=== PATIENT | male | born 2000 | race Caucasian/White ===

== ENCOUNTER 2021-12-16 01:57 | Observation (INO) ==
[2021-12-16] MEDS ORDERED: ONDANSETRON 4 MG OD TAB PO STA (02:00)
[2021-12-16] MEDS ORDERED: SODIUM CHLORIDE 0.9% 1000ML 1,000 ML IV STA (02:00)
[2021-12-16] MEDS ORDERED: ACETAMINOPHEN 1,000 MG/100 ML VIAL IV STA (02:11)
[2021-12-16] MEDS ORDERED: DICYCLOMINE HCL 10 MG/ML 2 ML AMP/VIAL IM ONE (02:11)
[2021-12-16] MEDS ORDERED: SODIUM CHLORIDE 0.9% 1000ML 1,000 ML IV ONE (02:22)
[2021-12-16 02:28] LABS: Basophils # (auto) 0.03 K/uL (0-0.2); Basophils % (auto) 0.2 %; Eosinophils # (auto) 0.02 K/uL (0-0.50); Eosinophils % (auto) 0.1 %; Hematocrit (blood only) 42.6 % (40.1-51.0); Hemoglobin 15.5 g/dl (14.0-18.0); Immature Granulocytes # (auto) 0.07 K/uL (0.00-0.02); Immature Granulocytes % (auto) 0.4 %; Lymphocytes # (auto) 3.88 K/uL (1.2-3.4); Lymphocytes % (auto) 22.8 %; Mean Corpuscular Hgb Conc 36.4 g/dL (32.0-36.0); Mean Platelet Volume 11.3 fL (9.4-12.4); Monocytes # (auto) 1.23 K/uL (0.24-0.82); Monocytes % (auto) 7.2 %; Neutrophils # (auto) 11.82 K/uL (1.4-6.5); Neutrophils % (auto) 69.3 %; Platelet Count 222 K/uL (130-400); RDW Coefficient of Variation 11.5 % (11.5-14.5); Red Blood Count 4.84 M/uL (4.63-6.08); White Blood Count 17.05 K/ul (4.8-10.8)
--- NOTE | 2021-12-16 02:28 | Emergency Department Note ---
History of Present Illness General Chief complaint: Abdominal Pain Stated complaint: ABD PAINS,NAUSEA,LIGHTHEADED Time Seen by Provider: 12/16/21 02:01 History of Present Illness Maximum Pain Intensity: 10 This 21-year-old [facility] presents to the ER complaining of nausea vomiting abdominal pain for the past day Location: Abdomen Quality: Nauseated Severity: moderate Duration: past day Timing: past day Context: Patient was concerned and came in Modifying factors: better with rest; worse with activity Patient states he is healthy with no active medical problems. He does drink moderately. Patient denies chest pain, dyspnea, fevers, diarrhea, testicular pain, penile pain. No anal pain. Home Medications Medication Instructions Recorded Confirmed Type No Known Home Medications 12/16/21 12/16/21 History Allergies Allergy/AdvReac Type Severity Reaction Status Date / Time No Known Allergies Allergy Unverified 12/16/21 02:27 Past Med/Surg History Medical History No acute medical problems Surgical History No pertinent past surgical history Social History Smoking Status: Never smoker Preferred Language: Mauritanian Feels Safe at Home: Yes Review of Systems A total of 10 systems reviewed and were otherwise negative Physical Exam Vital Signs Vital Signs - 24 hr 12/16/21 02:01 12/16/21 02:17 12/16/21 02:43 Temperature 36.8 C Temperature Source Temporal Artery Scan Pulse Rate 110 H 103 H Pulse Rate [Finger] 84 Pulse Rhythm [Finger] Regular Pulse Strength [Finger] Normal Respiratory Rate 18 20 18 Respiratory Effort / Characteristics Non-Labored Spontaneous Non-Labored Spontaneous Respiratory Depth Normal Normal Blood Pressure 151/90 H Blood Pressure [Right Arm] 131/70 Blood Pressure Mean 110 Blood Pressure Mean [Right Arm] 90 Blood Pressure Position Sitting Pulse Oximetry 99 96 98 Oxygen Delivery Method Room Air Room Air Room Air Sepsis Recent Fever Within 48 Hours No Sepsis New/Unexplained Change in Mental Status No Sepsis Action Taken by Nursing No Action Required 12/16/21 04:01 Temperature Temperature Source Pulse Rate Pulse Rate [Finger] 101 H Pulse Rhythm [Finger] Pulse Strength [Finger] Respiratory Rate 16 Respiratory Effort / Characteristics Respiratory Depth Blood Pressure Blood Pressure [Right Arm] 129/77 Blood Pressure Mean Blood Pressure Mean [Right Arm] 94 Blood Pressure Position Pulse Oximetry 94 Oxygen Delivery Method Room Air Sepsis Recent Fever Within 48 Hours Sepsis New/Unexplained Change in Mental Status Sepsis Action Taken by Nursing VITALS: Vitals are noted on the nurse's note and reviewed by myself. Vital signs reviewed. GENERAL: Pleasant gentleman holding his vomit bag, in no acute distress, nondiaphoretic, well-developed well-nourished. SKIN: The skin was without rashes, erythema, edema, or bruising. There is no tenting of the skin. Capillary reflex less than 2 seconds. HEAD: Normocephalic atraumatic. EARS: External auditory canals clear, EYES: Pupils equal round and reactive to light and accommodation. Conjunctivae without injection, sclerae without icterus. Extraocular movements intact. NOSE: Patent, turbinates without inflammation or discharge. MOUTH: Mucous membranes moist. Pharynx without erythema or exudate. Uvula midline. Airway patent. Tongue does not deviate. NECK: Supple without nuchal rigidity. No lymphadenopathy. No thyromegaly. Cervical spine is nontender. No JVD. HEART: Regular rate and rhythm LUNGS: Clear to auscultation bilaterally without wheezes, rales or rhonchi. No retractions or accessory muscle use. ABDOMEN: Positive bowel sounds x 4. Normal tympanic percussion. Soft, diffusely tender to palpation, without masses or organomegaly. Lemons sign negative. No guarding or rebound tenderness. No CVA tenderness MUSCULOSKELETAL: No muscle atrophy, erythema, or edema noted. NEURO: Patient was alert and oriented to person place and time. Normal sensation to light and sharp touch. No focal neurological deficits. Course Administered Medications Potassium Chloride (K Shahid / Wtr) 10 meq in 100 mls @ 100 mls/hr IV ONE ONE; Protocol Stop: 12/16/21 04:55 Last Admin: 12/16/21 04:20 Dose: 100 mls/hr Documented By: SUSY Discontinued Medications Dicyclomine HCl (Dicyclomine Hcl 10 Mg/Ml 2 Ml Amp/Vial) 20 mg IM NOW ONE Stop: 12/16/21 02:12 Last Admin: 12/16/21 02:19 Dose: 20 mg Documented By: SUSY Sodium Chloride (Nss 1000ml) 1,000 mls @ 999 mls/hr IV .Q1H1M STA Stop: 12/16/21 03:00 Last Infusion: 12/16/21 02:41 Dose: 0 mls/hr Documented By: Admin: 12/16/21 02:19 Dose: 999 mls/hr Documented By: SUSY Acetaminophen (Ofirmev) 1,000 mg in 100 mls @ 400 mls/hr IV NOW STA Stop: 12/16/21 02:25 Last Infusion: 12/16/21 02:38 Dose: 0 mls/hr Documented By: Admin: 12/16/21 02:19 Dose: 400 mls/hr Documented By: SUSY Sodium Chloride (Nss 1000ml) 1,000 mls @ 999 mls/hr IV .Q1H1M ONE Stop: 12/16/21 03:22 Last Infusion: 12/16/21 03:27 Dose: 0 mls/hr Documented By: Admin: 12/16/21 02:40 Dose: 999 mls/hr Documented By: SUSY Piperacillin Sod/Tazobactam Sod (Zosyn) 4.5 gm in 120 mls @ 240 mls/hr IV NOW ONE Stop: 12/16/21 04:03 Last Infusion: 12/16/21 04:17 Dose: 0 mls/hr Documented By: Admin: 12/16/21 03:48 Dose: 240 mls/hr Documented By: SUSY Ioversol (Optiray 350 100ml) 100 ml IV ONCE ONE Stop: 12/16/21 03:16 Last Admin: 12/16/21 03:15 Dose: 86 ml Documented By: MOHSEN Morphine Sulfate (Morphine Sulfate 4 Mg/Ml 1 Ml Carp\Vial) 4 mg IV NOW STA Stop: 12/16/21 03:44 Last Admin: 12/16/21 03:47 Dose: 4 mg Documented By: SUSY Ondansetron HCl (Ondansetron 4 Mg Od Tab) 4 mg PO NOW STA Stop: 12/16/21 02:01 Last Admin: 12/16/21 02:19 Dose: 4 mg Documented By: SUSY Ondansetron HCl (Ondansetron Inj 2 Mg/Ml 2 Ml Vial) 4 mg IV NOW STA Stop: 12/16/21 03:24 Last Admin: 12/16/21 03:26 Dose: 4 mg Documented By: SUSY Potassium Chloride (Potassium Chloride 10 Meq Tabcr) 40 meq PO NOW STA Stop: 12/16/21 03:14 Last Admin: 12/16/21 03:47 Dose: Not Given Documented By: SUSY Medical Decision Making Medical Records Attestation: I reviewed the patient's medical records. Home Medications Current Medication List: was personally reviewed by me Laboratory Data Attestation: I reviewed the patient's lab results. Result diagrams: 12/16/21 02:15 12/16/21 02:15 Lab Results 12/16/21 12/16/21 12/16/21 Range/Units 02:15 02:15 03:35 WBC 17.05 H (4.8-10.8) K/ul RBC 4.84 (4.63-6.08) M/uL Hgb 15.5 (14.0-18.0) g/dl Hct 42.6 (40.1-51.0) % MCV 88.0 (80.0-100.0) fL MCH 32.0 (25.0-34.0) pg MCHC 36.4 H (32.0-36.0) g/dL RDW Std Deviation 37.0 (36.4-46.3) fL RDW Coeff of Katarzyna 11.5 (11.5-14.5) % Plt Count 222 (130-400) K/uL MPV 11.3 (9.4-12.4) fL Immature Gran % (Auto) 0.4 % Neut % (Auto) 69.3 % Lymph % (Auto) 22.8 % Mason % (Auto) 7.2 % Eos % (Auto) 0.1 % Baso % (Auto) 0.2 % Neut # (Auto) 11.82 H (1.4-6.5) K/uL Lymph # (Auto) 3.88 H (1.2-3.4) K/uL Mason # (Auto) 1.23 H (0.24-0.82) K/uL Eos # (Auto) 0.02 (0-0.50) K/uL Baso # (Auto) 0.03 (0-0.2) K/uL Immature Gran # (Auto) 0.07 H (0.00-0.02) K/uL Sodium 135 L (136-145) mmol/L Potassium 3.2 L (3.5-5.1) mmol/L Chloride 99 (98-107) mmol/L Carbon Dioxide 24 (21-32) mmol/L Anion Gap 12 H (3-11) BUN 15 (6-23) mg/dl Creatinine 1.07 (0.6-1.4) mg/dl Est Cr Clr Drug Dosing 109.0 ml/min Est GFR ( Amer) 115.2 ml/min Est GFR (Non-Af Amer) 99.4 ml/min BUN/Creatinine Ratio 14.0 (10-20) Glucose 189 H (70-99(Fasting)) mg/dl Calcium 9.5 (8.5-10.1) mg/dl Total Bilirubin 1.2 H (0.2-1.0) mg/dl AST 13 (13-39) U/L ALT 11 (7-52) U/L Alkaline Phosphatase 55 (34-104) U/L Total Protein 7.4 (6.0-8.3) gm/dl Albumin 4.7 (3.4-5.0) gm/dl Globulin 2.7 (2.5-4.0) gm/dl Albumin/Globulin Ratio 1.7 (0.9-2) Lipase 10 L (11-82) U/L Urine Color Yellow Urine Appearance Clear (Clear) Urine pH 6.5 (4.5-7.5) Ur Specific Truxton > 1.045 H (1.000-1.030) Urine Protein Negative (Negative) Urine Glucose (UA) Negative (Negative) Urine Ketones 1+ H (Negative) Urine Blood Negative (Negative) Urine Nitrite Negative (Negative) Urine Bilirubin Negative (Negative) Urine Urobilinogen Negative (Negative) Ur Leukocyte Esterase Negative (Negative) SARS-CoV-2, RNA, NAAT (NEGATIVE) 12/16/21 Range/Units Unknown WBC (4.8-10.8) K/ul RBC (4.63-6.08) M/uL Hgb (14.0-18.0) g/dl Hct (40.1-51.0) % MCV (80.0-100.0) fL MCH (25.0-34.0) pg MCHC (32.0-36.0) g/dL RDW Std Deviation (36.4-46.3) fL RDW Coeff of Katarzyna (11.5-14.5) % Plt Count (130-400) K/uL MPV (9.4-12.4) fL Immature Gran % (Auto) % Neut % (Auto) % Lymph % (Auto) % Mason % (Auto) % Eos % (Auto) % Baso % (Auto) % Neut # (Auto) (1.4-6.5) K/uL Lymph # (Auto) (1.2-3.4) K/uL Mason # (Auto) (0.24-0.82) K/uL Eos # (Auto) (0-0.50) K/uL Baso # (Auto) (0-0.2) K/uL Immature Gran # (Auto) (0.00-0.02) K/uL Sodium (136-145) mmol/L Potassium (3.5-5.1) mmol/L Chloride (98-107) mmol/L Carbon Dioxide (21-32) mmol/L Anion Gap (3-11) BUN (6-23) mg/dl Creatinine (0.6-1.4) mg/dl Est Cr Clr Drug Dosing ml/min Est GFR ( Amer) ml/min Est GFR (Non-Af Amer) ml/min BUN/Creatinine Ratio (10-20) Glucose (70-99(Fasting)) mg/dl Calcium (8.5-10.1) mg/dl Total Bilirubin (0.2-1.0) mg/dl AST (13-39) U/L ALT (7-52) U/L Alkaline Phosphatase (34-104) U/L Total Protein (6.0-8.3) gm/dl Albumin (3.4-5.0) gm/dl Globulin (2.5-4.0) gm/dl Albumin/Globulin Ratio (0.9-2) Lipase (11-82) U/L Urine Color Urine Appearance (Clear) Urine pH (4.5-7.5) Ur Specific Truxton (1.000-1.030) Urine Protein (Negative) Urine Glucose (UA) (Negative) Urine Ketones (Negative) Urine Blood (Negative) Urine Nitrite (Negative) Urine Bilirubin (Negative) Urine Urobilinogen (Negative) Ur Leukocyte Esterase (Negative) SARS-CoV-2, RNA, NAAT NEGATIVE (NEGATIVE) Imaging Data Attestation: I personally reviewed and interpreted this imaging study as follows : MDM Narrative Prior records/ancillary studies reviewed. Triage Nursing notes reviewed. Additional history obtained from friend The patient's history was concerning for nausea, vomiting, and abdominal pain. Differential diagnosis: Etiologies such as gastroenteritis, food borne illness, infections, appendicitis, diverticulitis, inflammatory bowel disease, obstruction, GI bleed, biliary pathology, as well as others were entertained. Physical examination findings: As above. Abdominal examination revealed diffuse tenderness. Vital signs revi ewed and revealed stable. ER treatment provided: IV hydration 2 L NSS. Zofran Bentyl Tylenol, Zosyn On reassessment the patient felt better. Patient was tolerating p.o. intake. Diagnostics interpretation by me: The labs revealed Leukocytosis most likely marginalization from vomiting hyperglycemia without DKA most likely stress reaction Imaging studies: Patient: PRETTY LAYTON (Male) : 2 Status: ER Date: 12/16/21 03:17 Room #: History: SEVERE PAIN AT LOWER ABD, ELEVATED WBC Slices: [phone] Priors: Tech: John Damianie @ [phone] Exams: CT ABDOMEN & PELVIS With Contrast Contrast: IV Amt: 86 ML OPTIRAY 350 Accession Numbers: [id number] Referring Physician: REFERRED SELF Preliminary Findings Only See Final Report For Complete Findings CT ABDOMEN & PELVIS With Contrast: The appendix is markedly dilated, measuring over 15 mm in diameter. There is an appendicolith. Very marked inflammatory changes are seen within the pelvis with associated pelvic and paracolic gutter free fluid. No free air is seen. There is also extensive abnormal dilated small bowel. This may represent severe ileus or mechanical small bowel obstruction related to the severe inflammatory changes in the pelvis. The findings are consistent with acute appendicitis. Given the severity of the inflammatory change in the presence of extensive fluid and associated small bowel ileus or obstruction, rupture should be suspected. Radiologist: Alfredo Chan MD Study ready at 03:20 and initial results transmitted at 03:32 Communications: Clear Time Type Notes Call Doctor Appendicitis Consultation: A consultation was placed with the surgical team The case was discussed and diagnostics were reviewed. The patient was evaluated in the ER for further treatment. Exam and history are concerning for acute appendicitis with concerns for rupture. Patient was started on antibiotics. Surgery was consulted. Patient will be evaluated by the surgical team. By the evaluation outlined above emergent etiologies such as diverticulitis, obstruction, cardiac sources, mesenteric ischemia, aortic pathology, inflammatory bowel disease, renal colic, PUD, biliary pathology, UTI, as well as others were deemed relatively unlikely. The pt informed about the findings as listed above. All questions were answered and pleased with the treatment The chart was completed utilizing [employer] Speech voice recognition software. Grammatical errors, random word insertions, pronoun errors, and incomplete sentences are an occassional consequence of this system due to software limitations, ambient noise, and hardware issues. Any formal questions or concerns about the content, text, or information contained within the body of this dictation should be directly addressed to the physician legal administrative assistant for clarification. Impression & Plan Acute appendicitis Discharge Plan Visit Data Chief Complaint: Abdominal Pain Stated Complaint: ABD PAINS,NAUSEA,LIGHTHEADED ED Provider: Elpidio Chow ED Midlevel Provider: Radha Cardona Discharge Problem: Acute appendicitis Patient Disposition: Being Evaluated by Surgeon Condition: Good Forms Stand Alone Forms: KVK TEAM Prescriptions Prescriptions: No Action No Known Home Medications Referrals Referrals: PCP,NO [Physician] - : Acute appendicitis Qualifiers: Acute appendicitis type: with generalized peritonitis Appendicitis gangrene presence: unspecified whether gangrene present Appendicitis perforation presence: with perforation Appendicitis abscess presence: unspecified whether abscess present Qualified Code(s): K35.20 - Acute appendicitis with generalized peritonitis, without abscess
[2021-12-16 02:48] LABS: Albumin Globulin Ratio 1.7 (0.9-2); Albumin Level 4.7 gm/dl (3.4-5.0); Bilirubin,Total 1.2 mg/dl (0.2-1.0); Calcium 9.5 mg/dl (8.5-10.1); Est GFR (African American) 115.2 ml/min; Est GFR (Non-African American) 99.4 ml/min; Globulin 2.7 gm/dl (2.5-4.0); Potassium 3.2 mmol/L (3.5-5.1); Total Protein 7.4 gm/dl (6.0-8.3)
[2021-12-16] MEDS ORDERED: POTASSIUM CHLORIDE 10 MEQ TABCR PO STA (03:13)
[2021-12-16] MEDS ORDERED: OPTIRAY 350 100ml IV ONE (03:15)
[2021-12-16] MEDS ORDERED: ONDANSETRON INJ 2 MG/ML 2 ML VIAL IV STA (03:23)
[2021-12-16] MEDS ORDERED: PIPERACILLIN/TAZOBACTAM 4.5 GM/120 ML BAG IV ONE (03:34)
[2021-12-16] MEDS ORDERED: MoRPHine SULFATE 4 MG/ML 1 ML CARP\\VIAL IV STA (03:43)
[2021-12-16] MEDS ORDERED: ACETAMINOPHEN 1,000 MG/100 ML VIAL IV PRN (03:48)
[2021-12-16 03:49] LABS: Appearance Urine Clear (Clear); Bilirubin Urine Negative (Negative); Blood Urine Negative (Negative); Color Urine Yellow; Glucose Urine UA Negative (Negative); Ketones Urine 1+ (Negative); Leukocyte Esterase Urine Negative (Negative); Nitrite Urine Negative (Negative); Protein Urine Negative (Negative); Specific Gravity Urine > 1.045 (1.000-1.030); Urobilinogen Urine Negative (Negative); pH Urine 6.5 (4.5-7.5)
[2021-12-16] MEDS ORDERED: POTASSIUM CHLORIDE / WTR 10 MEQ/100 ML PLCT IV ONE (03:56)
[2021-12-16] MEDS ORDERED: LACTATED RINGER'S 1,000 ML IV SCH (04:00)
--- NOTE | 2021-12-16 04:06 | History & Physical Report ---
Date of Service December 16, 2021 Assessment & Plan (1) Acute appendicitis: Plan: Due to the patient's clinical presentation as well as findings on imaging we will admit the patient to the hospital and proceed as follows: We will keep the patient n.p.o. Analgesics will be provided. As needed intravenous morphine and acetaminophen have been ordered We have ordered Zofran for as needed antiemetic purposes Antibiotics will be administered. The treating clinician emergency department has already ordered Zosyn. He is currently receiving his first dose and this medication will be continued The patient is noted to have hypokalemia. The treating clinician the emergency department has given 40 mEq of oral potassium supplementation. I will also order a 10 mill equivalent KCl rider and also supplement his intravenous fluids with potassium We will hydrate the patient with intravenous fluids. He has already received 2 L of normal saline solution in the emergency department. I have ordered lactated Ringer's at 125 cc/h with 10 mill equivalents of potassium per liter. We will keep the patient n.p.o. I discussed the case with my attending physician Dr. Mascorro. We will tentatively plan on performing a appendectomy today. I have added the patient to Dr. Mascorro surgical schedule. Will use SCDs for DVT prevention, no chemical means due to planned surgery He will be a level 1 full code I have offered to contact patient's family but he has declined this at the present time. 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 He presented to the emergency department secondary to abdominal pain for approximately 24 hours. He notes that the pain was primarily located initially in his central abdomen and just above his bladder but over the ensuing 24 hours the pain is now generalized throughout his abdomen. He has had associated nausea and vomiting. He has never had any abdominal surgeries in the past. He does not note any palliative factors other than some medicines administered in the emergency department. He notes that the pain is worse with movement and was particularly worse in the car ride into the hospital. He notes his most recent oral intake was approximate 9:00 PM on 12/15/2021 when he had some Pasta. In the emergency department the patient had labs and imaging which I independently reviewed. He had a CT scan of the abdomen pelvis that showed the appendix is noted to be markedly dilated measuring approximately 15 mm. An appendicolith was noted and marked inflammatory changes were seen in the pelvis and the paracolic gutter. There is no free fluid noted there is no free air noted. These findings were concerning for an acute appendicitis with potential rupture. There is also dilatation noted of the small bowel concerning for ileu s. Labs include a CBC her white blood cell count was elevated at 70.0. Hemoglobin and hematocrit are both normal as was his platelet count. Chemistry profile showed sodium was 135 with a potassium of 3.2 urinalysis was not indicative of infection. And a COVID test was negative. Since arrival to the emergency department the patient has received 2 L of normal saline solution. He has been given 40 mill equivalents of oral potassium. He is also received various modalities for analgesia including 1000 mg of acetaminophen, 20 mg of Bentyl, and 4 mg of intravenous morphine. Since arrival to the emergency department the patient has been hemodynamically stable and afebrile. At the time of my interview his most recent blood pressure is 131/70. His pulse ranges anywhere from from 80-100 at the time of my interview. And he was again noted to be afebrile with temperature 36.8. Pulse ox is 90% on room air. Concerning past medical history the patient denies any medical problems Concerning past surgical history he notes that he has had his wisdom teeth out he is also had elbow surgery, but again has not had any abdominal surgeries Concerning social history patient occasionally consumes alcohol, but he does not smoke or vape Concerning for family history he does not note any medical problems that run in his family. At the time of my interview the patient's abdomen was somewhat uncomfortable but he was in no distress. Allergies Allergy/AdvReac Type Severity Reaction Status Date / Time No Known Allergies Allergy Unverified 12/16/21 02:27 Home Medications Medication Instructions Recorded Confirmed Type No Known Home Medications 12/16/21 12/16/21 History Past Med/Surg History Medical History No acute medical problems Surgical History No pertinent past surgical history Social History Smoking Status: Current some day smoker Second Hand Exposure: No; Do You Dip or Chew Tobacco: No; Tobacco Cessation Education Requested by Patient: No Hx Alcohol Use: Yes Alcohol type: beer and hard liquor Hx Substance Use: No Preferred Language: German 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 Beliefs That Will Affect Care: None Current Living Situation: Parent Current Living Situation Comment: 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 Other Information That Helps Us Care for You: No Feels Safe at Home: Yes Safety Concerns: Feels Safe At This Time Assistive Devices: None Review of Systems Constitutional: no fever and no chills Ear, Nose, Mouth, Throat: No hearing loss Respiratory: no cough and no dyspnea Cardiovascular: no chest pain Gastrointestinal: + abdominal pain, + nausea and + vomiting Genitourinary: no dysuria Musculoskeletal: no back pain Integumentary: no rash Physical Exam Constitutional: well developed and well nourished; no acute distress Eyes: no conjunctival abnormality ENMT: Ears: no hearing impairment Mouth: no oropharynx abnormality Neck: trachea midline Respiratory: normal respiratory effort, lungs clear to auscultation Cardiovascular: Rate/Rhythm: regular rate and regular rhythm Gastrointestinal (Abdomen): Abdomen is somewhat rigid. It is nondistended but bowel sounds are absent. Patient had pain with palpation in a generalized fashion throughout his abdomen greatest in the right lower quadrant. There are some mild rebound tenderness noted. Musculoskeletal: No calf tenderness, feet are warm and nonmottled Skin: no rashes Neurologic: moves all extremities Psychiatric: A+Ox3, euthymic affect Results & Data Results & Data ([facility]) Vital Signs (Past 12 Hours) Vital Signs Temp Pulse Pulse Resp BP BP Pulse Ox 12/16/21 02:43 84 18 131/70 98 12/16/21 02:17 103 H 20 96 12/16/21 02:01 36.8 C 110 H 18 151/90 H 99 O2 Del Method 12/16/21 02:43 Room Air 12/16/21 02:17 Room Air 12/16/21 02:01 Room Air Supervising Physician Co-Signing Physician Notes Patient seen and examined, labs and imaging reviewed, agree with above. 21-year-old male presented with 36 hours of abdominal pain On exam he is febrile to 38.5 and mildly tachycardic. His abdomen is soft but diffusely tender to palpation, worse in the right lower quadrant and pelvis. WBC 17, other labs unremarkable. Personally viewed and interpreted the CT scan and agree with the assessment of an acute appendicitis with some periappendiceal fluid. No obvious perforation but may represent developing abscess or contained perforation. Discussed options to include antibiotics versus surgery, patient elects for surgery. Plan for laparoscopic appendectomy, possible open Risks of the procedure were discussed to include but not limited to bleeding, infection, conversion open, damage to structures, need for future more extensive surgery, abscess, and risks of anesthesia Did discuss that if the appendix is significantly inflamed and not amenable to surgery without performing an ileocecectomy, we may place a drain and treat with antibiotics. PG Care Time/CCT Total # of Minutes Spent Total Time Spent with Patient: Total time spent is greater than 50% in coordination of care (as documented) at patient's floor/unit and/or counseling patient: Coding Level of Care Code 54232 Initial Inpt Care Lvl 3 Diagnoses Acute appendicitis K35.20 Acute appendicitis type: with generalized peritonitis Appendicitis abscess presence: unspecified whether abscess present Appendicitis gangrene presence: unspecified whether gangrene present Appendicitis perforation presence: with perforation (1) Acute appendicitis Acute appendicitis type: with generalized peritonitis Appendicitis abscess presence: unspecified whether abscess present Appendicitis gangrene presence: unspecified whether gangrene present Appendicitis perforation presence: with perforation Qualified Code(s): K35.20 - Acute appendicitis with generalized peritonitis, without abscess
[2021-12-16] MEDS: POTASSIUM CHLORIDE 10 MEQ in LACTATED RINGER'S 1,000 ML IV SCH ×3 (05:00→23:26)
[2021-12-16] MEDS: MoRPHine SULFATE 4 MG/ML 1 ML CARP\\VIAL IV PRN ×2 (06:40→11:58)
--- NOTE | 2021-12-16 06:48 | Anesthesiology Consultation ---
Date of Service December 16, 2021 Assessment & Plan (1) Encounter for pre-operative examination: Chart Review Chart Review: Acceptable Risk for Surgery and Patient NOT seen in Pre Admission Testing Consults Requested none History Surgery Operation Date: 12/16/21 08:20 Proposed Procedures p Laparoscopic Appendectomy - Elpidio Mascorro DO, FACS Height/Weight Height: 6 ft 2 in Weight: 68.5 kg Allergies Allergy/AdvReac Type Severity Reaction Status Date / Time No Known Allergies Allergy Unverified 12/16/21 02:27 Medications Home Medications Medication Instructions Recorded Confirmed Last Taken No Known Home Medications 12/16/21 12/16/21 Unknown Active Medications Generic Name Dose Route Start Last Admin Trade Name Freq PRN Reason Stop Dose Admin Potassium Chloride 10 meq/ 1,005 mls @ 125 mls/hr 12/16/21 05:00 12/16/21 05:00 Lactated Ringer's IV 01/15/22 03:59 125 mls/hr .Q8H3M DANK Administration Morphine Sulfate 3 mg 12/16/21 03:48 12/16/21 06:40 Morphine Sulfate 4 Mg/Ml 1 Ml Carp\Vial IV 12/30/21 03:47 3 mg Q3H PRN Administration Pain Past Medical History Medical History No acute medical problems Past Surgical History Surgical History No pertinent past surgical history Social History Smoking Status: Current some day smoker tobacco type: cigarettes Do You Dip or Chew Tobacco: No Hx Alcohol Use: Yes Alcohol type: beer and hard liquor alcohol intake frequency: a few times a week Alcohol Intake Frequency Comment: 2x a week Hx Substance Use: No substance use type: does not use Physical Exam Vital Signs Last Vital Signs Temp 98.8 F 12/16/21 06:16 Pulse 84 12/16/21 06:16 Resp 17 12/16/21 06:16 BP 106/52 L 12/16/21 06:16 Pulse Ox 91 12/16/21 06:16 O2 Del Method 12/16/21 06:16 Testing Laboratory Results 12/16/21 02:15 12/16/21 02:15 Urine Color Yellow 12/16/21 03:35 Urine Appearance Clear (Clear) 12/16/21 03:35 Urine pH 6.5 (4.5-7.5) 12/16/21 03:35 Ur Specific [place] > 1.045 (1.000-1.030) H 12/16/21 03:35 Urine Protein Negative (Negative) 12/16/21 03:35 Urine Glucose (UA) Negative (Negative) 12/16/21 03:35 Urine Ketones 1+ (Negative) H 12/16/21 03:35 Urine Nitrite Negative (Negative) 12/16/21 03:35 Ur Leukocyte Esterase Negative (Negative) 12/16/21 03:35
[2021-12-16] MEDS ORDERED: PIPERACILLIN/TAZOBACTAM 4.5 GM in DEXTROSE 5% 100 ML IV SCH (08:00)
--- NOTE | 2021-12-16 08:11 | CT Scan Report ---
CT abd pelvis IV con only CLINICAL HISTORY: lower abd pain TECHNIQUE: Helical axial images of the abdomen and pelvis were obtained and displayed. Automated dose lowering techniques and/or adjustment according to patient size were utilized for this exam. This e xam was performed with intravenous contrast. CT DOSE: 311.95 mGy.cm COMPARISON: None available at the time of this dictation. FINDINGS: Lower chest: No acute abnormality. Liver: Unremarkable. No focal lesions are seen. Gallbladder and biliary tree: No calcified gallstones. Normal caliber wall. No intra- or extrahepatic biliary ductal dilation. Pancreas: Unremarkable, no focal lesions. Spleen: Unremarkable. Adrenals: Unremarkable. Kidneys and ureters: Unremarkable. Bladder: Mild prominence of the bladder wall is favored to be reactive to adjacent inflammation. Reproductive organs: Unremarkable. Bowel: An appendicolith is seen. The appendix measures 15 mm in diameter with prominence of the appen diceal wall and surrounding fluid. No well-defined fluid collections are seen, however. No free air i s seen. Adjacent loops of small bowel appear mildly distended, likely reactive. Lymph nodes Retroperitoneal: Unremarkable. Pelvic: Unremarkable. Mesenteric: Subcentimeter lymph nodes are noted. Peritoneum: A moderate amount of free fluid is seen in the pelvis and abdomen. No definite drainable fluid collection is seen. No free air is noted in the peritoneum. Vessels: Unremarkable. Abdominal wall: Unremarkable. Bones: Unremarkable. IMPRESSION: Marked findings of acute appendicitis are seen with appendicolith and prominent appendiceal dilation. No evidence of surrounding abscess. No perforation is definitely seen and there is no pneumoperitone um, however given the degree of distention and lack of clear visualization of appendiceal wall in the mid appendix, a small contained rupture cannot be entirely excluded. ACT 112: Negative or not required by law. Electronically signed by: Amandeep Mendosa M.D. 12/16/2021 8:10 AM
[2021-12-16] MEDS: ONDANSETRON INJ 2 MG/ML 2 ML VIAL IV PRN (11:58)
[2021-12-16] MEDS ORDERED: BUPIVACAINE 0.5 % 5 MG/1 ML MPF 30ML VIAL ONE (12:18)
--- NOTE | 2021-12-16 12:26 | History & Physical Bridge Note ---
Date of Service December 16, 2021 History & Physical Bridge Note I have examined the patient, reviewed the History & Physical and in the interval since the performance of the History & Physical I have noted the following changes of clinical significance: no changes noted
[2021-12-16] MEDS ORDERED: DEXAMETHASONE SOD INJ 4 MG/ML VIAL ONE (12:28)
[2021-12-16] MEDS ORDERED: PROPOFOL IV EMULSION 10 MG/ML 20 ML VIAL IV ONE ×2 (12:28→13:49)
[2021-12-16] MEDS ORDERED: ONDANSETRON INJ 2 MG/ML 2 ML VIAL ONE (12:28)
[2021-12-16] MEDS ORDERED: NEOSTIGMINE METHYLSULFATE 1 MG/ML 10ML VIAL ONE (12:28)
[2021-12-16] MEDS ORDERED: fentaNYL citrate 100 MCG/2 ML VIAL ONE ×2 (12:28→13:48)
[2021-12-16] MEDS ORDERED: GLYCOPYRROLATE 0.2 MG/ML VIAL ONE (12:28)
[2021-12-16] MEDS ORDERED: MIDAZOLAM HCL 1 MG/ML 2ML VIAL ONE (12:28)
[2021-12-16] MEDS ORDERED: LIDOCAINE 2% MPF LOCAL 5 ML VIAL INFIL ONE (12:30)
[2021-12-16] MEDS ORDERED: ROCURONIUM BROMIDE 10 MG/ML 5 ML VIAL IV ONE (12:30)
[2021-12-16] MEDS ORDERED: ONDANSETRON INJ 2 MG/ML 2 ML VIAL IV PRN (12:35)
[2021-12-16] MEDS ORDERED: HYDROmorphone INJ 1 MG/ML SYRINGE IV PRN (12:35)
[2021-12-16] MEDS ORDERED: fentaNYL citrate 100 MCG/2 ML VIAL IV PRN (12:35)
[2021-12-16] MEDS ORDERED: ATROPINE SULFATE 0.1 MG/ML 10ML SYR IV PRN (12:35)
[2021-12-16] MEDS ORDERED: PROMETHAZINE HCL 6.25 MG in SODIUM CHLORIDE 0.9% 50 ML IV PRN (12:35)
[2021-12-16] MEDS ORDERED: ePHEDrine sulfate 50 MG/ML AMP IV PRN (12:35)
--- NOTE | 2021-12-16 14:12 | Operative Report ---
PG Post Operative Report Pre & Post Diagnosis Operation Date: 12/16/21 08:20 Pre-Op Diagnosis: Appendicitis Post-Op Diagnosis: Perforated Appendicitis, Appendectomy, Peritoneum washout I identified the patient and participated in the time-out.: Yes Procedure Operation Date: 12/16/21 08:20 Actual Procedures p Laparoscopic Appendectomy(Not Applicable) - Elpidio Mascorro DO, DONNIE Surgeon Elpidio Mascorro DO, DONNIE Campus Executive Director Yulisa Krishnan Estimated Blood Loss 5 Findings Consistent with Post-Op Diagnosis Acute appendicitis with perforation and purulent peritonitis. Mesoappendix taken with sonicision, gangrenous appendix divided at healthy base with a portion of the cecum using 60 mm purple loaded stapler. Irrigation with 2.5 L of saline. GUILLE drain placed. Specimens Appendix Peritoneal fluid for culture Anesthesia Type General Complications none Disposition Accompanied Patient To Recovery: No Disposition: Recovery Room Indications 21-year-old male presented to the emergency department with signs and symptoms of acute appendicitis with questionable perforation. Patient was admitted and placed on antibiotics. After discussion with the patient, plan for laparoscopic appendectomy, possible open. The risks of the procedure were discussed, all questions were answered, and the patient agreed to proceed with surgery as planned. Description of Procedure The patient was properly identified, consented, and taken to the operating room where he was placed in the supine position. General endotracheal anesthesia was induced. SCDs and a safety belt were placed. Preoperative antibiotics were administered. A Cervantes catheter was not placed. The patient's abdomen was prepped and draped in the standard sterile fashion. Surgical timeout was performed and all parties were in agreement that this was the correct patient and procedure to be performed and we continued as planned. A curvilinear infraumbilical incision was made with electrocautery and deepened down to the fascia with blunt dissection. The base of the umbilicus was grasped with a Jhon and elevated towards the ceiling. An incision was made in the midline fascia with a knife and entry into the peritoneum was confirmed. There was some purulent fluid in the abdomen and this was sent for culture. Stay suture of 0 Vicryl was placed and a Lombardi trocar was inserted. The abdomen was insufflated with carbon dioxide which the patient tolerated without incident. The laparoscope was inserted and no damage from initial trocar placement was noted. There was purulent fluid throughout the abdomen and evidence of peritonitis. 5 mm ports were then placed in the left lower quadrant with care not to damage the epigastric vessels, and in the suprapubic midline with care not to damage the bladder. The patient was placed in Trendelenburg position and rotated towards the left. Purulent fluid in the right lower quadrant pelvis was suctioned. The small bowel was swept away from the right lower quadrant. The cecum was grasped with an atraumatic grasper exposing the appendix. The appendix was acutely and significantly inflamed. It appeared to be gangrenous and may have had a perforation, but there was no evidence of feculent drainage or obvious wall defect. The sonicision utilized to take down the mesoappendix to the base of the appendix right where it met the cecum. The base of the appendix was thickened and edematous, but the cecum appeared to be healthy. A purple loaded 60 mm endoscopic stapler was then used to divide the appendix at its base, taking a portion of cecum so as to staple across healthy tissue. The appendix was placed in an Endo Catch bag and removed through the umbilical port site. Hemostasis was found to be good. The abdomen was explored and any loculated pockets of fluid were identified and irrigated. All 4 quadrants of the abdomen were irrigated copiously. Total irrigation was between 2.5 and 3 L of fluid. A round GUILLE drain was placed into the right lower quadrant and pelvis and exited through the left lower quadrant port site incision. This was secured in place with a 2-0 nylon suture. 5 mm trochars were removed under direct visualization and the abdomen was allowed to collapse. The umbilical port site fascia was closed with 0 Vicryl suture. The wound was irrigated, and the skin of all ports was closed with 4-0 Monocryl subcuticular sutures. Dermabond was placed over the wounds. The patient was extubated in the operating room and taken to the PACU where he recovered without apparent incident. All sponge, instrument and needle counts were correct at the conclusion of the procedure. The patient tolerated the procedure well. The physician's investment sales assistant was present and scrubbed for the entire the case. She was critical in positioning the patient, prepping and draping, retraction and exposure, driving the laparoscope, removal of the appendix, closure the incisions, and placement of the dressings. I attest to the content of the Intraoperative Record and any orders documented therein. Any exceptions are noted below.
--- NOTE | 2021-12-16 14:52 | Anesthesiology Progress Note ---
Date of Service December 16, 2021 Anesthesia Post Procedure Vital Signs Vital Signs: Temp Pulse Pulse Pulse Resp BP BP 12/16/21 14:40 80 12 106/54 L 12/16/21 14:30 70 13 99/47 L 12/16/21 14:23 37.5 C 83 16 120/68 12/16/21 12:36 37.8 C H 95 H 20 106/70 12/16/21 11:03 38.5 C H 103 H 19 103/55 L 12/16/21 09:00 87 12/16/21 06:16 37.1 C 84 17 106/52 L 12/16/21 04:01 101 H 16 129/77 12/16/21 02:43 84 18 131/70 12/16/21 02:17 103 H 20 12/16/21 02:01 36.8 C 110 H 18 151/90 H Pulse Ox O2 Del Method O2 Flow Rate 12/16/21 14:40 99 Oxymask 5 12/16/21 14:30 96 Oxymask 5 12/16/21 14:23 100 Oxymask 5 12/16/21 12:36 95 Room Air 12/16/21 11:03 99 Room Air 12/16/21 09:00 12/16/21 06:16 91 Room Air 12/16/21 04:01 94 Room Air 12/16/21 02:43 98 Room Air 12/16/21 02:17 96 Room Air 12/16/21 02:01 99 Room Air Transfer of Care Handoff Completed per policy Notes Mental Status: alert / awake / arousable and participated in evaluation Patient Amnestic to Procedure: Yes Nausea / Vomiting: adequately controlled Pain: adequately controlled Airway Patency, RR, SpO2: stable & adequate BP & HR: stable & adequate Hydration State: stable & adequate Anesthetic Complications: no major complications apparent and Pt Satisfied with anesthetic care
[2021-12-16] MEDS ORDERED: MoRPHine SULFATE 2 MG/ML CARP IV PRN (15:21)
[2021-12-16] MEDS ORDERED: MoRPHine SULFATE 4 MG/ML 1 ML CARP\\VIAL IV PRN (15:21)
[2021-12-16] MEDS: PIPERACILLIN/TAZOBACTAM 3.375 GM in DEXTROSE 5% 100 ML IV SCH ×2 (15:53→23:26)
[2021-12-17] MEDS: PIPERACILLIN/TAZOBACTAM 3.375 GM in DEXTROSE 5% 100 ML IV SCH ×2 (07:51→17:06)
[2021-12-17] MEDS: ONDANSETRON INJ 2 MG/ML 2 ML VIAL IV PRN ×2 (08:09→19:57)
[2021-12-17 08:12] LABS: Hematocrit (blood only) 36.4 % (40.1-51.0); Hemoglobin 12.9 g/dl (14.0-18.0); Mean Corpuscular Hemoglobin 32.3 pg (25.0-34.0); Mean Corpuscular Hgb Conc 35.4 g/dL (32.0-36.0); Mean Corpuscular Volume 91.2 fL (80.0-100.0); Mean Platelet Volume 12.1 fL (9.4-12.4); Platelet Count 154 K/uL (130-400); RDW Coefficient of Variation 11.9 % (11.5-14.5); RDW Standard Deviation 40.1 fL (36.4-46.3); Red Blood Count 3.99 M/uL (4.63-6.08); White Blood Count 12.11 K/ul (4.8-10.8)
[2021-12-17] MEDS: POTASSIUM CHLORIDE 10 MEQ in LACTATED RINGER'S 1,000 ML IV SCH ×2 (08:29→17:05)
[2021-12-17 08:33] LABS: Basophils # (auto) 0.01 K/uL (0-0.2); Basophils % (auto) 0.1 %; Immature Granulocytes # (auto) 0.06 K/uL (0.00-0.02); Immature Granulocytes % (auto) 0.5 %; Lymphocytes # (auto) 0.65 K/uL (1.2-3.4); Lymphocytes % (auto) 5.4 %; Monocytes # (auto) 0.79 K/uL (0.24-0.82); Monocytes % (auto) 6.5 %; Neutrophils % (auto) 87.5 %; RBC Morphology Unremarkable
--- NOTE | 2021-12-17 09:38 | Surgery Progress Note ---
Date of Service December 17, 2021 Assessment & Plan Admission and Anticipated Discharge Date Admission Date: December 16, 2021 Subjective Patient Results & Data ([facility]) Vital Signs (Past 12 Hours) Vital Signs Temp Pulse Pulse Resp BP Pulse Ox O2 Del Method 12/17/21 08:00 86 12/17/21 08:00 37.1 C 89 20 131/66 12/17/21 04:00 37.0 C 86 18 112/64 96 Room Air 12/17/21 00:12 37.2 C 74 18 119/65 99 Room Air 12/16/21 22:12 84 PG Care Time/CCT Total # of Minutes Spent Total Time Spent with Patient: Total time spent is greater than 50% in coordination of care (as documented) at patient's floor/unit and/or counseling patient: Coding
[2021-12-17 09:56] LABS: BUN Creatinine Ratio 10.6 (10-20); Calcium 8.7 mg/dl (8.5-10.1); Creatinine Clr Calc Pharmacy 110.6 ml/min; Est GFR (African American) 119.2 ml/min; Est GFR (Non-African American) 102.9 ml/min; Potassium 3.9 mmol/L (3.5-5.1)
--- NOTE | 2021-12-17 12:24 | Surgery Progress Note ---
Date of Service December 17, 2021 Assessment & Plan (1) History of laparoscopic appendectomy: Plan: POD #1 laparoscopic appendectomy and washout for perforated appendicitis with purulent peritonitis Patient may have clear liquids, advised him to take it slow Continue IV antibiotics until white blood cell count normalizes and he has been afebrile for 24 hours We will slowly advance to low fiber diet as tolerated He should go home on 1 weeks worth of antibiotics GUILLE drain can be removed prior to discharge Wound care instructions and activity restrictions reviewed, return precautions given Follow-up in general surgery clinic with myself in 2 weeks He and his family were made aware that after perforated appendicitis intra- abdominal abscesses can occur, and they were educated on signs and symptoms of these Dr. Vyas covering over weekend Admission and Anticipated Discharge Date Admission Date: December 16, 2021 Subjective 21-year-old male POD #1 laparoscopic appendectomy and washout for perforated appendicitis with purulent peritonitis. Overall feeling better, still little sore and bloated. He has not had a fever since just after surgery. He tolerated clear liquid tray last night but did have some emesis after clear liquids this morning. He has passed some gas. Physical Exam Constitutional: WD/WN, vitals as above Gastrointestinal (Abdomen): normal bowel sounds, soft, nontender, no hepatosplenomegaly Inspection/Auscultation: + abdominal surgical incision (No infection) and + abdominal surgical drain present (GUILLE serosanguineous) Results & Data ([facility]) Vital Signs (Past 12 Hours) Vital Signs Temp Pulse Pulse Resp BP Pulse Ox O2 Del Method 12/17/21 08:00 86 12/17/21 08:00 37.1 C 89 20 131/66 12/17/21 04:00 37.0 C 86 18 112/64 96 Room Air PG Care Time/CCT Total # of Minutes Spent Total Time Spent with Patient: Total time spent is greater than 50% in coordination of care (as documented) at patient's floor/unit and/or counseling patient: Coding Level of Care Code None Diagnoses History of laparoscopic appendectomy Z90.49
[2021-12-17] MEDS ORDERED: oxyCODONE HCL IR 5 MG TAB (IMMEDIATE RELEASE) PO PRN (14:33)
[2021-12-17] MEDS ORDERED: IBUPROFEN 200 MG TAB PO PRN (14:33)
--- NOTE | 2021-12-17 22:02 | Surgery Progress Note ---
Date of Service December 17, 2021 Assessment & Plan (1) History of laparoscopic appendectomy: Plan: At this point we will keep the patient n.p.o. the option was to place an NG tube and this was discussed with the patient and the family and the patient did not want to have it inserted Long discussion with the family regarding the patient's status and were concerned that this was a deterioration in his part since earlier today and reassured him that this scenario was quite common with someone that has not gangrenous ruptured appendix that at times we put an NG tube at the time of the surgery and leave it in a few days in anticipation of what happens in these c ases I also did mention to him not to be surprised if he was here another 3 to 4 days before considering discharge All questions were answered and they appeared satisfied with our plan of therapy I further told him that I would be here all night in case things would change Plan Keep n.p.o. Toradol IV for pain Admission and Anticipated Discharge Date Admission Date: December 16, 2021 Subjective Was called by the nurses in approximately 930 this evening to come up and see the patient for the family was very concerned about his status The patient was nauseated and actually had vomited multiple times He was complaining of abdominal pain mostly at the drain site pulling on his skin in the left side of his belly no real complaints over the other areas or other trocar sites The patient apparently was started on liquid diet today The mother and father at the bedside understandably concerned about his status he stated that he really did not have anything for pain since approximately 2:00 this afternoon where he had some morphine Physical Exam Physical Exam: Patient's vitals noted He is alert vomiting multiple times greenish in nature and also having some singultus The abdomen expected discomfort after surgery trocar sites are without any drainage the left lower quadrant drain site initially was not holding suction and the drainage according to the patient and the parents that had subsided considerably since earlier in the day Results & Data ([facility]) Vital Signs (Past 12 Hours) Vital Signs Temp Pulse Pulse Pulse Resp BP Pulse Ox 12/17/21 19:22 37.1 C 76 18 117/68 95 12/17/21 14:00 36.9 C 73 20 101/64 97 12/17/21 14:53 68 12/17/21 12:39 37.1 C 75 18 111/62 97 O2 Del Method 12/17/21 19:22 Room Air 12/17/21 14:00 Room Air 12/17/21 14:53 12/17/21 12:39 Room Air Laboratory Results Results noted PG Care Time/CCT Total # of Minutes Spent Total Time Spent with Patient: Total time spent is greater than 50% in coordination of care (as documented) at patient's floor/unit and/or counseling patient: Coding Level of Care Code None Diagnoses History of laparoscopic appendectomy Z90.49
[2021-12-17] MEDS: KETOROLAC 30 MG/ML VIAL IV PRN (22:07)
[2021-12-18] MEDS: POTASSIUM CHLORIDE 10 MEQ in LACTATED RINGER'S 1,000 ML IV SCH ×3 (00:41→18:26)
[2021-12-18] MEDS: PIPERACILLIN/TAZOBACTAM 3.375 GM in DEXTROSE 5% 100 ML IV SCH ×3 (01:58→16:37)
[2021-12-18] MEDS: ONDANSETRON INJ 2 MG/ML 2 ML VIAL IV PRN ×3 (02:04→16:37)
[2021-12-18] MEDS: KETOROLAC 30 MG/ML VIAL IV PRN ×3 (04:36→17:03)
[2021-12-18 05:47] LABS: Basophils # (auto) 0.01 K/uL (0-0.2); Basophils % (auto) 0.1 %; Eosinophils # (auto) 0.01 K/uL (0-0.50); Eosinophils % (auto) 0.1 %; Hemoglobin 11.8 g/dl (14.0-18.0); Immature Granulocytes # (auto) 0.02 K/uL (0.00-0.02); Immature Granulocytes % (auto) 0.2 %; Lymphocytes # (auto) 0.67 K/uL (1.2-3.4); Lymphocytes % (auto) 7.9 %; Mean Corpuscular Hemoglobin 31.6 pg (25.0-34.0); Mean Corpuscular Hgb Conc 34.7 g/dL (32.0-36.0); Mean Corpuscular Volume 91.2 fL (80.0-100.0); Mean Platelet Volume 11.5 fL (9.4-12.4); Monocytes % (auto) 7.1 %; Neutrophils # (auto) 7.18 K/uL (1.4-6.5); Neutrophils % (auto) 84.6 %; Platelet Count 153 K/uL (130-400); RDW Coefficient of Variation 11.7 % (11.5-14.5); RDW Standard Deviation 39.3 fL (36.4-46.3); Red Blood Count 3.73 M/uL (4.63-6.08); White Blood Count 8.49 K/ul (4.8-10.8)
[2021-12-18 06:23] LABS: BUN Creatinine Ratio 11.7 (10-20); Calcium 8.4 mg/dl (8.5-10.1); Creatinine Clr Calc Pharmacy 105.3 ml/min; Est GFR (African American) 110.2 ml/min; Est GFR (Non-African American) 95.1 ml/min; Potassium 3.9 mmol/L (3.5-5.1)
[2021-12-18] MEDS ORDERED: ACETAMINOPHEN 1,000 MG/100 ML VIAL IV PRN (07:37)
--- NOTE | 2021-12-18 09:23 | Surgery Progress Note ---
Date of Service December 18, 2021 Assessment & Plan (1) History of laparoscopic appendectomy: Plan: POD #2 laparoscopic appendectomy and washout for perforated appendicitis with purulent peritonitis WBC 8.4, VSS and patient afebrile Pt with bouts of emesis overnight and was backed down to NPO. This AM he feels better Will allow him sips of water through today and take it slowly, he understands GUILLE drain serosang Continue prn pain meds and IV abx Pt seen/examined with Dr. Vyas Admission and Anticipated Discharge Date Admission Date: December 16, 2021 Subjective Patient feeling better this AM. Has not vomited since yesterday evening. No further pain associated with surgical drain. Denies nausea. Physical Exam Physical Exam: awake/alert, no distress Respiratory: normal respiratory effort Gastrointestinal (Abdomen): Inspection/Auscultation: + abdominal surgical incision (c/d/i) and + abdominal surgical drain present (serosang) Percussion/Palpation: + abdomen tender (excpected suhail incisional discomfort ) and abdomen soft Results & Data ([facility]) Vital Signs (Past 12 Hours) Vital Signs Temp Pulse Pulse Resp BP Pulse Ox O2 Del Method 12/18/21 07:49 37.4 C 73 18 116/66 98 Room Air 12/18/21 07:21 46 L 12/18/21 02:50 36.8 C 64 18 117/62 95 Room Air 12/18/21 00:56 57 L 12/17/21 22:27 36.8 C 77 18 128/82 99 Room Air PG Care Time/CCT Total # of Minutes Spent Total Time Spent with Patient: Total time spent is greater than 50% in coordination of care (as documented) at patient's floor/unit and/or counseling patient: Coding Level of Care Code None Diagnoses History of laparoscopic appendectomy Z90.49
[2021-12-19] MEDS: POTASSIUM CHLORIDE 10 MEQ in LACTATED RINGER'S 1,000 ML IV SCH ×4 (01:57→23:33)
[2021-12-19] MEDS: PIPERACILLIN/TAZOBACTAM 3.375 GM in DEXTROSE 5% 100 ML IV SCH ×4 (01:57→23:38)
[2021-12-19 06:18] LABS: Basophils # (auto) 0.02 K/uL (0-0.2); Basophils % (auto) 0.2 %; Eosinophils # (auto) 0.07 K/uL (0-0.50); Eosinophils % (auto) 0.8 %; Hemoglobin 12.2 g/dl (14.0-18.0); Immature Granulocytes # (auto) 0.03 K/uL (0.00-0.02); Immature Granulocytes % (auto) 0.3 %; Lymphocytes # (auto) 0.71 K/uL (1.2-3.4); Lymphocytes % (auto) 7.8 %; Mean Corpuscular Hemoglobin 32.3 pg (25.0-34.0); Mean Corpuscular Hgb Conc 34.9 g/dL (32.0-36.0); Mean Corpuscular Volume 92.6 fL (80.0-100.0); Mean Platelet Volume 11.3 fL (9.4-12.4); Monocytes # (auto) 0.68 K/uL (0.24-0.82); Monocytes % (auto) 7.5 %; Neutrophils # (auto) 7.59 K/uL (1.4-6.5); Neutrophils % (auto) 83.4 %; Platelet Count 171 K/uL (130-400); RDW Coefficient of Variation 11.5 % (11.5-14.5); RDW Standard Deviation 39.3 fL (36.4-46.3); Red Blood Count 3.78 M/uL (4.63-6.08)
[2021-12-19 06:53] LABS: BUN Creatinine Ratio 14.8 (10-20); Calcium 8.2 mg/dl (8.5-10.1); Creatinine Clr Calc Pharmacy 134.5 ml/min; Est GFR (African American) 143.3 ml/min; Est GFR (Non-African American) 123.7 ml/min; Potassium 3.7 mmol/L (3.5-5.1)
--- NOTE | 2021-12-19 09:40 | Surgery Progress Note ---
Date of Service December 19, 2021 Assessment & Plan (1) Acute appendicitis: Plan POD 3 lap appy for perforated appendicitis seen with Dr. Vyas WBC 9, afebrile waiting return of bowel function, keep on ice/sips for now ambulate Admission and Anticipated Discharge Date Admission Date: December 16, 2021 Subjective overall feeling better although some heartburn no further vomiting Physical Exam Gastrointestinal (Abdomen): Inspection/Auscultation: + abdominal surgical drain present (30 cc overnight, off and on holding suction); abdomen not distended Results & Data ([facility]) Vital Signs (Past 12 Hours) Vital Signs Temp Pulse Pulse Resp BP Pulse Ox O2 Del Method 12/19/21 08:31 37.1 C 79 20 128/78 97 Room Air 12/19/21 07:15 96 H 12/19/21 00:13 67 PG Care Time/CCT Total # of Minutes Spent Total Time Spent with Patient: Total time spent is greater than 50% in coordination of care (as documented) at patient's floor/unit and/or counseling patient: Coding Level of Care Code None Diagnoses Acute appendicitis K35.20 Acute appendicitis type: with generalized peritonitis Appendicitis abscess presence: unspecified whether abscess present Appendicitis gangrene presence: unspecified whether gangrene present Appendicitis perforation presence: with perforation (1) Acute appendicitis Acute appendicitis type: with generalized peritonitis Appendicitis abscess presence: unspecified whether abscess present Appendicitis gangrene presence: unspecified whether gangrene present Appendicitis perforation presence: with perforation Qualified Code(s): K35.20 - Acute appendicitis with generalized peritonitis, without abscess
--- NOTE | 2021-12-20 08:14 | Surgery Progress Note ---
Date of Service December 20, 2021 Assessment & Plan (1) Acute appendicitis: Plan: POD 4 lap appy for perforated appendicitis afebrile start on clears cont Zosyn ambulating Admission and Anticipated Discharge Date Admission Date: December 16, 2021 Supervising Physician Co-Signing Physician Notes Patient seen and examined, agree with above. Status post laparoscopic appendectomy and washout for gangrenous and perforated appendicitis with purulent peritonitis. He tolerated clear liquids this morning and has had a bowel movement and is still passing gas. He would like to try regular food. On exam he is afebrile with stable vitals. Incisions without infection. GUILLE drain not holding suction with minimal serosanguineous fluid. Abdomen soft, nontender, nondistended. We will advance to regular diet, DC drain, DC to home. We will send him home with a week of antibiotics. Follow-up in 2 weeks. Wound care instructions and activity restrictions reviewed, return precautions given, call with questions or concerns. Subjective feeling better, passing some flatus, ambulating, not taking analgesics, no fevers/chill Physical Exam Gastrointestinal (Abdomen): Inspection/Auscultation: + abdominal surgical drain present (serous drainage); abdomen not distended Percussion/Palpation: abdomen soft Results & Data ([facility]) Vital Signs (Past 12 Hours) Vital Signs Temp Pulse Pulse Pulse Resp BP Pulse Ox 12/20/21 07:43 37.0 C 65 18 136/68 98 12/20/21 07:32 53 L 12/20/21 04:00 36.7 C 89 18 130/86 98 12/20/21 02:30 48 L 12/19/21 23:00 36.6 C 68 18 132/85 98 O2 Del Method 12/20/21 07:43 Room Air 12/20/21 07:32 12/20/21 04:00 Room Air 12/20/21 02:30 12/19/21 23:00 Room Air PG Care Time/CCT Total # of Minutes Spent Total Time Spent with Patient: Total time spent is greater than 50% in coordination of care (as documented) at patient's floor/unit and/or counseling patient: Coding Level of Care Code None Diagnoses Acute appendicitis K35.20 Acute appendicitis type: with generalized peritonitis Appendicitis abscess presence: unspecified whether abscess present Appendicitis gangrene presence: unspecified whether gangrene present Appendicitis perforation presence: with perforation (1) Acute appendicitis Acute appendicitis type: with generalized peritonitis Appendicitis abscess presence: unspecified whether abscess present Appendicitis gangrene presence: unspecified whether gangrene present Appendicitis perforation presence: with perforation Qualified Code(s): K35.20 - Acute appendicitis with generalized peritonitis, without abscess
[2021-12-20] MEDS: POTASSIUM CHLORIDE 10 MEQ in LACTATED RINGER'S 1,000 ML IV SCH (08:15)
[2021-12-20] MEDS: PIPERACILLIN/TAZOBACTAM 3.375 GM in DEXTROSE 5% 100 ML IV SCH (08:16)
--- NOTE | 2021-12-22 13:51 | Discharge Summary ---
Date of Service December 20, 2021 Admission HPI Per Admitting Provider This is a 21-year-old male who is a [employer] student. He presented to the emergency department secondary to abdominal pain for approximately 24 hours. He notes that the pain was primarily located initially in his central abdomen and just above his bladder but over the ensuing 24 hours the pain is now generalized throughout his abdomen. He has had associated nausea and vomiting. He has never had any abdominal surgeries in the past. He does not note any palliative factors other than some medicines administered in the emergency department. He notes that the pain is worse with movement and was particularly worse in the car ride into the hospital. He notes his most recent oral intake was approximate 9:00 PM on 12/15/2021 when he had some Pasta. In the emergency department the patient had labs and imaging which I independently reviewed. He had a CT scan of the abdomen pelvis that showed the appendix is noted to be markedly dilated measuring approximately 15 mm. An appendicolith was noted and marked inflammatory changes were seen in the pelvis and the paracolic gutter. There is no free fluid noted there is no free air noted. These findings were concerning for an acute appendicitis with potential rupture. There is also dilatation noted of the small bowel concerning for ileus. Labs include a CBC her white blood cell count was elevated at 70.0. Hemoglobin and hematocrit are both normal as was his platelet count. Chemistry profile showed sodium was 135 with a potassium of 3.2 urinalysis was not indicative of infection. And a COVID test was negative. Since arrival to the emergency department the patient has received 2 L of normal saline solution. He has been given 40 mill equivalents of oral potassium. He is also received various modalities for analgesia including 1000 mg of a cetaminophen, 20 mg of Bentyl, and 4 mg of intravenous morphine. Since arrival to the emergency department the patient has been hemodynamically stable and afebrile. At the time of my interview his most recent blood pressure is 131/70. His pulse ranges anywhere from from 80-100 at the time of my interview. And he was again noted to be afebrile with temperature 36.8. Pulse ox is 90% on room air. Concerning past medical history the patient denies any medical problems Concerning past surgical history he notes that he has had his wisdom teeth out he is also had elbow surgery, but again has not had any abdominal surgeries Concerning social history patient occasionally consumes alcohol, but he does not smoke or vape Concerning for family history he does not note any medical problems that run in his family. At the time of my interview the patient's abdomen was somewhat uncomfortable but he was in no distress. Principal Diagnosis Perforated appendicitis with sepsis Discharge Exam Constitutional WD/WN, vitals as above Gastrointestinal (Abdomen) Inspection/Auscultation: + abdominal surgical incision (dry port sites); abdomen not distended Percussion/Palpation: abdomen soft Discharge Data Allergies Allergy/AdvReac Type Severity Reaction Status Date / Time No Known Allergies Allergy Unverified 12/16/21 02:27 Consultations 12/16/21 03:35 ED Decision to Admit Stat Procedures Performed Operation Date: 12/16/21 08:20 Actual Procedures p Laparoscopic Appendectomy, Peritoneum washout(Not Applicable) - Elpidio Mascorro DO, FACS Ordered Studies 12/16/21 02:11 CT Abd and Pelvis [CT abd pelvis IV con only] Urgent Hospital Course (1) Acute appendicitis: 21-year-old male to the ER overnight with abdominal pain. White count was 12,[address] was consistent with acute appendicitis possible perforation. He was taken to the operating room for laparoscopic appendectomy. He did have perforated appendicitis with peritonitis and was admitted to the surgical floor and kept on IV Zosyn throughout admission. In the morning his white count had improved. He was started on clear liquids. Later that evening he developed nausea and vomiting and was made NPO. His nausea improved but he did not have any returning bowel function on postoperative day 3. By day 4 he began moving his bowels. He was able to tolerate advancing diet during the day. GUILLE drain was removed. He was stable for discharge home later that afternoon on oral antibiotics. Total Time Total Time Spent Total Time Spent (In Minutes): 15 Discharge Plan Discharge Items Patient Disposition: Home - Self-Care Reason For Visit: APPENDICITIS Discharge Diagnosis: laparoscopic appendectomy Condition on Discharge: Good Activity: Per Instructions section Lifting: No more than 10 pounds Bathing Comment: may shower; no soaking in tubs/pools Exercise/Sports: Wait until after follow-up appointment Driving/Machine Use: no driving if taking any narcotics for pain Non-emergency contact: Surgeon Call non-emergency contact if: you have any medication questions, your symptoms worsen, your pain is not controlled, your pain is concerning for you, you have a fever, your temperature is above 101.5, your wound has increased redness, your wound has increased drainage and your wound pain has increased Follow-up/Referrals: Elpidio Mascorro, DONNIE RIZO [Physician] - (Please call to schedule follow up in clinic within 1-2 weeks) [facility] [Primary Care Provider] - Diet: Regular Addtl Attending Provider Instructions: Please complete the full course of antibiotic prescribed to you You may purchase Tylenol and/or Ibuprofen over the counter if needed for pain control. Take per manufacturers instructions You may change the dressing where your surgical drain was daily and as needed with dry gauze and medical tape until the area is healed and no longer draining Pending Studies at Discharge: Yes Studies:: surgical pathology Stand-Alone Forms: My [facility], Work/School Release, Smoking Cessation Medications and DC Order Prescriptions: New amoxicillin-pot clavulanate 875-125 mg tablet 1 tab PO Q12H Qty: 14 0RF Discharge Orders: Discharge Order (Routine); Ordered 12/20/21 Ordered By: Brent Davis Admission Data Admit Date/Time: 12/16/21 04:10 Attending Provider: Elpidio Mascorro Admit Provider: Elpidio Mascorro Primary Care Provider: [facility] Other Providers: Elpidio Mascorro Other Interventions: Discharge Summary Assessment (RN) Last Done: 12/20/21 13:03 Coding Level of Care Code D/C DAY MANAGEMENT <30 MINS Diagnoses Acute appendicitis K35.20 Acute appendicitis type: with generalized peritonitis Appendicitis abscess presence: unspecified whether abscess present Appendicitis gangrene presence: unspecified whether gangrene present Appendicitis perforation presence: with perforation
== END 2021-12-20 16:07 | disposition home or self-care (01) | DRG 853 ==
LOC: ED 01:57 → 4W 04:10 → INTOOBSV 04:10 → 4W 05:41 → 2N 15:48